=== PATIENT | male | born 1985 | race Asian ===

== ENCOUNTER 2017-11-21 17:24 | Emergency (ER) | payer BC, OTHER ==
[2017-11-21] MEDS: Sodium Chloride 0.9% 1,000 ML SCH ×2 (17:35→17:45)
[2017-11-21] MEDS: Acetaminophen 500 MG Tab PO ONE (18:18)
[2017-11-21] MEDS: Ibuprofen 800 MG Tab PO ONE (18:19)
[2017-11-21] MEDS: Diphtheria,Pertussis(Acell),Tetanus Vaccine 0.5 ML SDV IM ONE (18:21)
--- NOTE | 2017-11-22 14:36 | ER ---
DATE SEEN: 11/21/2017 TIME SEEN: The patient was seen at 1726 hours. HISTORY OF PRESENT ILLNESS: This 32-year-old employee of [employer], attempted to, with his colleague, check hydraulic pumps. One of the hydraulic pump's tubes exploded. This resulted in splashing of hydraulic fluid over his face. He was wearing eye protection goggles, but the fluid drained down into his face. His eyes were washed immediately. He had some fluid get into his mouth, and he "gargled" with water also. The patient denies shortness of breath. Denies other health problems, but he has mild eye discomfort. No compromised vision. ALLERGIES: He denies allergies to medications. SOCIAL HISTORY: Drinks a 6-pack a week. Denies smoking. PAST MEDICAL HISTORY: No diabetes, heart disease, high blood pressure, or other serious illness. MEDICATIONS: None. REVIEW OF SYSTEMS: Negative. PHYSICAL EXAMINATION: VITAL SIGNS: 166/98, respirations 12 to 14, and pulse 83. GENERAL: The patient is alert. HEENT: Pupils equal, round, and reactive to light. He has marked scleral injection. Mild ecchymosis of the conjunctivae. EOMs normal. Immediate fluorescein stain places no fluorescein uptake. Immediate 2 drops of tetracaine placed in each eye followed by instillation of Gavin lens and 2 L of fluid flush to his eyes, as we followed this. Pharynx without abnormality. No pharyngeal erythema. LUNGS: No difficulty breathing. No rales in the lungs. He did not get the hydraulic fluid in his lungs. HEART: S1, S2. No murmur. ABDOMEN: Soft. No guarding. No discomfort. EXTREMITIES: Without abnormality. NEURO: Not performed. DISCUSSION: 1. Hydraulic fluid exposure. Poison Control advised to flush for 20 minutes and then dismiss. The hydraulic oil felt to be benign. It is a chemical irritation, mild. 2. The patient has received Tdap, 0.5 mL IM. 3. He had numerous soft liquid eye tear gels placed in the eyes. 4. No patches required. No evidence for corneal abrasion. ASSESSMENT AND PLAN: Cornea and eye exposure to hydraulic fluid without complication. Oral exposure to hydraulic fluid without complication. No aspiration of hydraulic fluid and no involvement of the lungs. The patient is otherwise healthy and had transient elevation of blood pressure. Multiple blood pressures showed blood pressures on arrival of 185/90, 159/100, 160/97, and 166/98. This suggests that he has hypertension. He needs to follow up and have his blood pressure checked - 6 different outpatient pressures, he needs to follow with his doctor. He apppear to have a need to be started on antihypertensive. The patient to follow up with the eye physician tomorrow and have his eyes cleared. /[id number] CYRUS/LUIS MIGUEL UMANA
== END 2017-11-21 18:31 | disposition home or self-care (01) ==
LOC: FB.ED 17:24
DX: Z77.098 Contact with and (suspected) exposure to other hazardous, chiefly nonmedicinal, chemicals (principal)
CPT/HCPCS: 90471; 90715; 99283; A9270; J7040